=== PATIENT | male | born 1940 | race Caucasian/White ===

== ENCOUNTER 2017-10-20 12:42 | Outpatient (RCR) | payer MEDICARE, BC ==
[~2017-10-20 12:42] MED LIST: ASCO-182 PO; ASPI81TA94 PO; ATOR20TA22 PO; CETI-176 PO; CHOL200025 PO; DOXA4TAB58 PO; FAMO20TA28 PO; HYDR-389 PO; IBUP800T37 PO; LEVO-85 PO; METO25TA93 PO; MULT1TAB64 PO; PHEN200T32 PO; SALM1CAP3 PO; SENN1TAB10 PO
[2017-10-21] MEDS ORDERED: TAMS0.4C70 PO (10:21)
[2017-10-21] MEDS ORDERED: CIPR-345 PO (10:21)
[2017-10-21] MEDS ORDERED: LISI-362 PO (10:21)
[2017-10-21] MEDS ORDERED: BICA50TA36 PO (10:21)
[2017-10-21] MEDS ORDERED: FURO-45 PO (10:21)
[2017-10-21] MEDS ORDERED: LEUP3.753 IM (10:24)
[2017-10-21] MEDS ORDERED: TRIA10.8 (10:26)
== END 2017-10-22 14:49 | disposition home or self-care (01) ==
LOC: RAON 12:42
PROVIDERS: ATTEND Radiology Radiation Oncology
DX: Z85.46 Personal history of malignant neoplasm of prostate (principal); Z92.3 Personal history of irradiation; E78.5 Hyperlipidemia, unspecified; I10 Essential (primary) hypertension; Z79.899 Other long term (current) drug therapy; Z79.82 Long term (current) use of aspirin; Z87.891 Personal history of nicotine dependence
CPT/HCPCS: 99213

== ENCOUNTER 2018-02-16 13:30 | Outpatient (RCR) | payer MEDICARE, BC ==
[~2018-02-16 13:30] MED LIST changes: +BICA50TA41 PO; +CIPR-345 PO; +FURO-45 PO; +LEUP3.753 IM; +LISI-362 PO; +TAMS0.4C70 PO; +TRIA10.8
== END 2018-02-17 13:43 | disposition home or self-care (01) ==
LOC: RAON 13:30
PROVIDERS: ATTEND Radiology Radiation Oncology
DX: Z85.46 Personal history of malignant neoplasm of prostate (principal); Z92.3 Personal history of irradiation; E78.5 Hyperlipidemia, unspecified; I10 Essential (primary) hypertension; Z79.899 Other long term (current) drug therapy; Z79.82 Long term (current) use of aspirin; Z87.891 Personal history of nicotine dependence
CPT/HCPCS: 99212

== ENCOUNTER 2018-06-08 13:11 | Outpatient (RCR) | payer MEDICARE, BC ==
--- NOTE | 2018-06-08 22:41 | ONCOLOGY FOLLOW UP NOTE ---
EVENT DATE: June 08, 2018 REASON FOR VISIT Patient is here for oncology followup appointment with known history of prostate carcinoma listed below. ONCOLOGY HISTORY 1. Fatou 3 + 4 = 7/10, poorly differentiated adenocarcinoma of the prostate, tumor occupying up to 80% of the left lateral apex, biopsy date of 05/05/2016. 2. Pretreatment PSA of 11.5 ng/mL. 3. Patient started on hormone therapy with Lupron, to be utilized in conjunction with radiation program. Lupron therapy completed April 2018. 4. Status post IMRT and external beam radiotherapy, progressive field reduction technique. Combined radiotherapy dose 7380 cGy, completed 05/06/17. INTERVAL HISTORY Patient drove down from [place] with his spouse today. Clinically doing well. Voiding function has returned to baseline. Denies any persistent dysuria. Generally gets up two times at night. He can experience an occasional tingling sensation, but it lasts only a few seconds. No persistent dysuria. No change in color of the urine. He denies any hot flashes at this time. No muscle weakness. Patient asked if he could go back on testosterone supplements, and I mentioned that it would be too early at this time for that consideration, but we would simply see what his numbers recover to over the next year. Patient denies any new or persistent bone pain. No bowel complaints. PSA is stable at 0.05 ng/mL. That was drawn on 05/31/18 with no interval change from the prior number in January 2018. MEDICATIONS 1. Tamsulosin 0.4 mg q. day. 2. Lasix 20 mg q. day. 3. Lisinopril 10 mg a day. 4. MVI. 5. Senna S tablet a day. 6. Zyrtec 10 mg q. day. 7. Aspirin 81 mg a day. 8. Lipitor 80 mg daily. 9. Metoprolol 50 mg daily. ALLERGIES None. PAST MEDICAL HISTORY 1. Prostate carcinoma. 2. Coronary artery disease with previous [place] in 2011. 3. History of pneumonia 09/2016. 4. Hypertension. SURGICAL HISTORY Three-vessel bypass in [place] 01/2012. SOCIAL HISTORY Prior smoking for 20 years remotely. Social alcohol use. Retired age 63. REVIEW OF SYSTEMS Essential negative except as listed above in HPI. PHYSICAL EXAMINATION VITAL SIGNS: Weight 218. BP 126/80, pulse 75, respirations 90. LUNGS: Clear bilaterally. LYMPHATICS: No lymphadenopathy. CARDIOVASCULAR: Heart sounds regular today. ABDOMEN: Obese. No gross organomegaly. RECTAL: Deferred due to normal PSA. NEUROLOGIC: Intact. IMPRESSION AND PLAN Patient has responded well to the combined modality therapy. He will follow up with Dr. Singleton in July. He follows up medically with Dr. Osuna twice a year, I believe in the [facility]. He sees a tumor registrar in [place] annually. I will see the patient again in December 2018. A week prior, he will have a PSA. I will also check a total testosterone value per his request to determine if the testosterone recovered naturally on its own. No supplements in the testosterone category for five years. Continue normal activities. All questions answered to the patient's satisfaction over a 45-minute appointment today. Greater than 35 minutes spent [id number] with the patient. EMY
== END 2018-06-30 12:49 | disposition home or self-care (01) ==
LOC: RAON 13:11
PROVIDERS: ATTEND Radiology Radiation Oncology
DX: C61 Malignant neoplasm of prostate (principal)
CPT/HCPCS: 99212

== ENCOUNTER 2018-12-20 16:53 | Outpatient (RCR) | payer MEDICARE, BC | END 2018-12-21 10:49 | disposition home or self-care (01) | LOC: RAON 16:53 | PROVIDERS: ATTEND Radiology Radiation Oncology | DX: C61 Malignant neoplasm of prostate (principal) ==

== ENCOUNTER 2019-01-04 14:51 | Outpatient (RCR) | payer MEDICARE, BC ==
[2019-01-04 15:14] VITALS: BP 127/74
--- NOTE | 2019-01-04 23:45 | ONCOLOGY FOLLOW UP NOTE ---
EVENT DATE: January 04, 2019 CHIEF COMPLAINT/REASON FOR VISIT Known history of prostate carcinoma. Patient is here for review of updated laboratory studies. ONCOLOGY HISTORY 1. Fatou 3+4=7 poorly differentiated adenocarcinoma of the prostate, tumor occupying up to 80% of the left lateral apex, biopsy date of 05/05/2016. 2. Pretreatment PSA of 11.5 ng/mL. 3. Patient started on hormone therapy with Lupron, to be utilized in conjunction with radiation program. Lupron therapy completed April 2018. 4. Status post IMRT and external beam radiotherapy, progressive field reduction technique. Combined radiotherapy dose 7380 cGy, completed 05/06/17. INTERVAL HISTORY Patient was seen for a followup appointment today. He drove down from [place] for a reassessment. He had blood work drawn several weeks back in [place], which included a PSA and a total testosterone. The PSA is undetectable. The total testosterone is just slightly below normal at 226 ng/mL (normal 250-840 ng/mL). Patient clinically has been doing well. Baseline nocturia x2 or 3, which is water related. Denies any new or persistent bone pain. Patient has been experiencing fatigue and was recently diagnosed with an element of CHF. He saw his continuous process tanner rotary drum yesterday and had an echocardiogram. He was also started on an increased dose of Lasix recently. Patient sees Dr. Flores, his continuous process tanner rotary drum from [place]. Patient's primary physician remains Dr. Osuna in [place], and he sees Dr. Singleton for his local uro-oncology needs. MEDICATIONS 1. Lasix 40 mg p.o. b.i.d. 2. Potassium 20 mEq b.i.d. 3. Tamsulosin 0.4 mg daily. 4. Zyrtec 10 mg p.r.n. 5. Aspirin 81 mg a day. 6. Lipitor 80 mg a day. 7; Metoprolol 50 mg a day. ALLERGIES None. PAST MEDICAL HISTORY 1. Prostate carcinoma. 2. Coronary artery disease with previous [place] in 2011. 3. History of pneumonia in 09/2016. 4. Hypertension. SURGICAL HISTORY Three-vessel bypass in [place], 01/2012. SOCIAL HISTORY Patient is retired, age 63. Previously smoked 20 years remotely. REVIEW OF SYSTEMS Comprehensive review of systems notable for fatigue, occasional sweats, occasional swelling in the ankles or feet, mild shortness of breath with exertion. Frequency is related to the Lasix. Has some joint pain and stiffness. No bowel complaints. PHYSICAL EXAMINATION GENERAL: A pleasant 78-year-old male of medium to large build. VITAL SIGNS: Weight 216. BP 127/74, pulse 42, respirations 16, O2 saturation 92% on room air. LUNGS: Clear bilaterally today. LYMPHATICS: No lymphadenopathy. CARDIOVASCULAR: Heart sounds regular. ABDOMEN: Soft, mildly obese. No gross organomegaly, mass or tenderness. RECTAL: Deferred due to subnormal PSA. NEUROLOGIC: Intact. IMPRESSION Overall, I am very pleased with the patient's clinical course to date and therapeutic response to the combined-modality program (Lupron plus external beam radiation therapy). The patient is now off hormone therapy, and his PSA remains well suppressed at the undetectable range. Our target value is 0 to 2.0 ng/mL. He will follow up with his continuous process tanner rotary drum and other providers per schedule. I will see him again in a year with updated blood work to include PSA and total testosterone at that juncture. From that point forward, we can probably monitor the patient with PSA only. All questions answered to the patient's satisfaction over a 40-minute followup appointment. Greater than 35 minutes were spent face to face with the patient. EMY
[2019-01-05] MEDS ORDERED: NITR0.4T3 SL (12:17)
[2019-01-05] MEDS ORDERED: FURO-47 PO (12:17)
[2019-01-05] MEDS ORDERED: SACU1TAB (12:17)
[2019-01-05] MEDS ORDERED: POTA20TA94 PO (12:17)
== END 2019-01-31 13:54 | disposition home or self-care (01) ==
LOC: RAON 14:51
PROVIDERS: ATTEND Radiology Radiation Oncology
DX: Z85.46 Personal history of malignant neoplasm of prostate (principal); Z92.3 Personal history of irradiation
CPT/HCPCS: 99212